=== PATIENT | male | born 1975 | race Caucasian/White ===

== ENCOUNTER 2017-11-20 09:16 | Emergency (ER) | payer MEDICAID ==
[~2017-11-20] VITALS: Ht 175.3 cm; Wt 90.0 kg
[~2017-11-20 09:16] MED LIST: ALBU6.7H INH; ALBU8.5H8 IH; ALBU8HFA PO; PRED50TA PO
[2017-11-20] MEDS ORDERED: albuterol 2.5 MG/3 ML nebule CONTNEB PRN (09:40)
[2017-11-20] MEDS ORDERED: methylPREDNISolone sod succ 125mg/2ml vial IV ONE (09:40)
[2017-11-20] MEDS ORDERED: normal saline 1000ML IV soln IVB ONE (09:40)
[2017-11-20] MEDS ORDERED: magnesium 2GM in 50ml NS 50 ML IV ONE (09:40)
[2017-11-20 10:09] LABS: BASOPHILS # (AUTO) 0.1 X10'3 (0-0.2); BASOPHILS % (AUTO) 0.7 % (0-1); EOSINOPHILS # (AUTO) 0.4 X10'3 (0-0.9); HEMOGLOBIN 14.9 g/dl (14.0-17.9); LYMPHOCYTES # (AUTO) 3.3 X10'3 (1.1-4.8); LYMPHOCYTES % (AUTO) 38.1 % (21-51); MEAN CORPUSCULAR HEMOGLOBIN 30.5 PG (27.0-31.0); MEAN CORPUSCULAR HGB CONC 33.8 % (33.0-36.5); MEAN CORPUSCULAR VOLUME 90.1 FL (78-98); MEAN PLATELET VOLUME 9.2 FL (7.4-10.4); MONOCYTES # (AUTO) 0.5 X10'3 (0-0.9); MONOCYTES % (AUTO) 6.4 % (2-12); NEUTROPHILS # (AUTO) 4.3 X10'3 (1.8-7.7); NEUTROPHILS % (AUTO) 49.8 % (42-75); PLATELET COUNT 225 X10'3 (140-440); RED BLOOD COUNT 4.88 X10'6 (4.70-6.10); WHITE BLOOD COUNT 8.6 X10'3 (4.5-11.0)
[2017-11-20] MEDS ORDERED: ALBU6.7H INH (10:25)
[2017-11-20] MEDS ORDERED: PRED20TA PO (10:25)
[2017-11-20 10:26] LABS: ALANINE AMINOTRANSFERASE 36 U/L (12-78); ALBUMIN 3.5 G/DL (3.4-5.0); ALBUMIN/GLOBULIN RATIO 0.9 (1.1-1.5); ALKALINE PHOSPHATASE 68 IU/L (46-116); ANION GAP 6 (8-16); ASPARTATE AMINO TRANSFERASE 18 U/L (10-37); BILIRUBIN,TOTAL 0.2 MG/DL (0.1-1.0); BLOOD UREA NITROGEN 17 MG/DL (7-18); BUN/CREATININE RATIO 17.5 (5.4-32.0); CALCIUM 8.8 MG/DL (8.5-10.1); CHLORIDE 109 MMOL/L (99-107); CREATININE 0.97 MG/DL (0.60-1.10); GLUCOSE 115 MG/DL (70-104); POTASSIUM 3.7 MMOL/L (3.5-5.1); SODIUM 142 MMOL/L (135-145); TOTAL CARBON DIOXIDE 27.4 MMOL/L (24-32); TOTAL PROTEIN 7.4 G/DL (6.4-8.2); eGFR 85 ML/MIN
[2017-11-20 11:24] VITALS: BP 133/87
== END 2017-11-20 11:26 | disposition home or self-care (01) ==
LOC: ER 09:17
DX: J45.901 Unspecified asthma with (acute) exacerbation (principal); J06.9 Acute upper respiratory infection, unspecified; Z79.899 Other long term (current) drug therapy
CPT/HCPCS: 36415; 71045; 80053; 85025; 93005; 94644; 94760; 96365; 96375; 99291; J2930; J3475; J7030; 94640; 96361

== ENCOUNTER 2018-01-28 09:04 | Emergency (ER) | payer MEDICAID ==
[~2018-01-28] VITALS: Ht 182.9 cm; Wt 94.2 kg
[2018-01-28] MEDS ORDERED: ipratropium/albuterol 3ml nebule NEB ONE (09:15)
[2018-01-28] MEDS ORDERED: predniSONE 20 mg tablet PO ONE (09:15)
[2018-01-28] MEDS ORDERED: ketorolac trometh. 30mg/ml inj. IV ONE (09:25)
[2018-01-28] MEDS ORDERED: normal saline 1000ml 1,000 ML IV ONE (09:25)
[2018-01-28] MEDS ORDERED: ondansetron/PF 4mg/2ml inj IV ONE (09:25)
[2018-01-28] MEDS ORDERED: ALBU6.7H INH (11:40)
[2018-01-28] MEDS ORDERED: AZIT-63 PO (11:40)
[2018-01-28] MEDS ORDERED: PRED20TA PO (11:40)
[2018-01-28 11:52] VITALS: BP 115/85
== END 2018-01-28 11:54 | disposition home or self-care (01) ==
LOC: ER 09:04
DX: J45.901 Unspecified asthma with (acute) exacerbation (principal); Z21 Asymptomatic human immunodeficiency virus [HIV] infection status
CPT/HCPCS: 71046; 87502; 87503; 93005; 94640; 94760; 96361; 96374; 99285; J1885; J7030; J7512